=== PATIENT | male | born 1950 | race Caucasian/White ===

== ENCOUNTER 2017-07-11 14:55 | Outpatient (RCR) | payer MEDICARE ==
[~2017-07-11 14:55] MED LIST: METF-421 PO; SIMV-49 PO
[2017-07-11 14:57] VITALS: BP 136/83
--- NOTE | 2017-07-12 16:56 | ONCOLOGY FOLLOW UP NOTE ---
EVENT DATE: July 11, 2017 DIAGNOSES 1. Iron overload. 2. 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 3. Erythrocytosis. 4. History of perforated diverticulitis status post surgery. 5. Hypercholesterolemia. CHIEF COMPLAINT The patient is here today for followup of his iron overload and secondary erythrocytosis. HEMATOLOGY HISTORY The patient is a 65-year-old male with insignificant past medical history except for perforated diverticulitis twelve years ago and hypercholesterolemia. The patient has been seen by Dr. Vega and he had iron studies done recently which showed ferritin of 709. CBC showed white count of 7.6, hemoglobin 17.5, hematocrit 50.9 and platelets 193,000. Transferrin saturation was 77%. TIBC was at the lower end of normal at 249. Hemochromatosis genetic testing came back positive for heterozygous state for F65C mutation of the HFE gene. HISTORY OF PRESENT ILLNESS The patient is here today for followup of his iron overload and erythrocytosis. He is doing fine currently and denies any symptoms or complaints today. PAST MEDICAL HISTORY 1. Perforated diverticulitis 12 years ago. 2. Hypercholesterolemia. PAST SURGICAL HISTORY Appendectomy in 1989 and surgery for perforated diverticulitis in 2002. SOCIAL HISTORY Patient is . He has a son and daughter. He has also a step-daughter. 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 He has 1 drink per week. He quit smoking November 1999 after a half pack a day for 20 years. Denies any abuse of illicit drugs. FAMILY HISTORY Father had prostate cancer at the age of 65. Mother had breast cancer at the age of 75. CURRENT MEDICATIONS 1. Simvastatin. 2. Baby aspirin. ALLERGIES NARCOTICS which cause flushing. REVIEW OF SYSTEMS CONSTITUTIONAL: No appetite or weight change. No fever, chills or sweating. No recent infection. HEENT: Ears: No tinnitus or hearing problem. Nose: No nasal discharge or epistaxis. Throat: No sore throat or mouth ulcers. Eyes: No diplopia or visual changes. RESPIRATORY: No shortness of breath. He has some cough from recent cold. No expectoration or hemoptysis. CARDIOVASCULAR: No chest pain, orthopnea, or paroxysmal nocturnal dyspnea (PND) . No edema. No palpitations. GASTROINTESTINAL: No nausea or vomiting. No diarrhea or constipation. No change in bowel movements. No heartburn or swallowing difficulties. No abdominal pain. No jaundice. No hematemesis, melena or rectal bleeding. GENITOURINARY: No hematuria or dysuria. MUSCULOSKELETAL: No pain in the muscles, joints or bones. NEUROLOGICAL: No tingling or numbness in the hands or feet. No headaches or convulsions. HEMATOLOGIC/LYMPHATIC: No bleeding or easy bruising. No weakness or fatigue. No enlarged lymph nodes. SKIN: No skin rash or lumps. PSYCHIATRIC: No anxiety or depression. PHYSICAL EXAMINATION GENERAL: Looks stable. Well-developed, well-nourished, and in no acute distress. VITAL SIGNS: Blood pressure 136/83, pulse 78 per minute, respirations 16 per minute, temperature 96.6, pulse oximetry 97% on room air. HEENT: Head: Atraumatic. No sinus tenderness to palpation. Eyes: No icterus or conjunctivitis. Mouth and throat: No oral thrush or mucositis. NECK: Supple. No cervical or supraclavicular lymphadenopathy. LUNGS: Clear to auscultation and percussion bilaterally. HEART: Regular rate and rhythm. No gallops, murmurs, clicks or rubs. ABDOMEN: Soft and lax. No tenderness. No hepatosplenomegaly. No masses. EXTREMITIES: No cyanosis, clubbing or edema. LYMPHATICS: No peripheral lymphadenopathy. NEUROLOGICAL: Conscious, alert and oriented times three. No focal motor or sensory deficits. PSYCHIATRIC: Mood and affect appear normal. SKIN: No skin rash, bruise or purpuric eruption. DIAGNOSTIC DATA Chem panel totally normal except creatinine 1.31, calcium 10.4, serum iron was 127, iron saturation 42%, TIBC was 304, total bilirubin was 1.6 and direct bilirubin was 0.43, blood sugar 147. Albumin was 5.1. ASSESSMENT 1. Iron overload with heterozygous state of S65C mutation of the HFE gene of hemochromatosis. The patient received phlebotomy sessions in the past. His ferritin dropped from 698 to 210 then summer to 402, then to 492. He received phlebotomy for that. His current iron studies are within the normal range, but ferritin was not done. I am planning to see him again in six months with CBC, chem panel, iron studies with ferritin. 2. Heterozygous state for S65C mutation with HFE gene. We will do a phlebotomy whenever it is indicated. 3. Erythrocytosis. Will consider phlebotomy if the hematocrit is above 55%. 4. History of perforated diverticulitis status post surgery. 5. Hypercholesterolemia on treatment. PLAN 1. Continue followup. 2. Phlebotomize 500 mL of blood if ferritin is above the normal range. 3. The patient to return in six months with CBC, chem panel and iron studies with ferritin. 4. The patient to contact us for any new concerns or complaints. TISH
--- NOTE | 2017-07-12 17:01 | ONCOLOGY FOLLOW UP NOTE ---
EVENT DATE: July 11, 2017 DIAGNOSES 1. Iron overload. 2. 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 3. Erythrocytosis. 4. History of perforated diverticulitis status post surgery. 5. Hypercholesterolemia. CHIEF COMPLAINT The patient is here today for followup DICTATION ENDS HERE MTDD
== END 2017-08-21 13:20 | disposition home or self-care (01) ==
LOC: ONC 14:55
PROVIDERS: ATTEND Internal Medicine Hematology
DX: E83.119 Hemochromatosis, unspecified (principal); D75.1 Secondary polycythemia; E78.00 Pure hypercholesterolemia, unspecified; Z87.891 Personal history of nicotine dependence
CPT/HCPCS: 99212

== ENCOUNTER 2018-01-24 08:19 | Outpatient (RCR) | payer MEDICARE ==
[~2018-01-24 08:19] MED LIST changes: -METF-421 PO; +METF-452 PO
[2018-01-24 15:41] VITALS: BP 142/89
--- NOTE | 2018-01-24 21:02 | ONCOLOGY FOLLOW UP NOTE ---
EVENT DATE: January 24, 2018 DIAGNOSES 1. Iron overload. 2. 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 3. Erythrocytosis. 4. History of perforated diverticulitis, status post surgery. 5. Hypercholesterolemia. CHIEF COMPLAINT The patient is here today for followup of his iron overload and secondary erythrocytosis. HEMATOLOGY HISTORY The patient is a 67-year-old male with insignificant past medical history except for perforated diverticulitis 12 years ago and hypercholesterolemia. The patient has been seen by Dr. Vega, and he had iron studies done recently which showed ferritin of 709. CBC showed white count of 7.6, hemoglobin 17.5, hematocrit 50.9, and platelets 193,000. Transferrin saturation was 77%. TIBC was at the lower end of normal at 249. Hemochromatosis genetic testing came back positive for heterozygous state for F65C mutation of the HFE gene. HISTORY OF PRESENT ILLNESS The patient is here today for followup of his iron overload and erythrocytosis. He is totally asymptomatic today, and he is doing very well. PAST MEDICAL HISTORY 1. Perforated diverticulitis 12 years ago. 2. Hypercholesterolemia. PAST SURGICAL HISTORY 1. Appendectomy in 1989. 2. Surgery for perforated diverticulitis in 2002. SOCIAL HISTORY Patient is . He has a son and a daughter. He has also a stepdaughter. 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 He has one drink per week. He quit smoking November 1999 after a half pack a day for 20 years. Denies any abuse of illicit drugs. FAMILY HISTORY Father had prostate cancer at the age of 65. Mother had breast cancer at the age of 75. CURRENT MEDICATIONS 1. Simvastatin. 2. Baby aspirin. ALLERGIES NARCOTICS which cause flushing. REVIEW OF SYSTEMS CONSTITUTIONAL: No appetite or weight change. No fever, chills or sweating. No recent infection. HEENT: Ears: No tinnitus or hearing problem. Nose: No nasal discharge or epistaxis. Throat: No sore throat or mouth ulcers. Eyes: No diplopia or visual changes. RESPIRATORY: No shortness of breath. No cough, expectoration, or hemoptysis. CARDIOVASCULAR: No chest pain, orthopnea, or paroxysmal nocturnal dyspnea (PND). No edema. No palpitations. GASTROINTESTINAL: No nausea or vomiting. No diarrhea or constipation. No change in bowel movements. No heartburn or swallowing difficulties. No abdominal pain. No jaundice. No hematemesis, melena, or rectal bleeding. GENITOURINARY: No hematuria or dysuria. MUSCULOSKELETAL: No pain in the muscles, joints, or bones. NEUROLOGICAL: No tingling or numbness in the hands or feet. No headaches or convulsions. HEMATOLOGIC/LYMPHATIC: No bleeding or easy bruising. No weakness or fatigue. No enlarged lymph nodes. SKIN: No skin rash or lumps. PSYCHIATRIC: No anxiety or depression. PHYSICAL EXAMINATION GENERAL: Looks stable. Well developed, well nourished, and in no acute distress. VITAL SIGNS: Blood pressure 142/89, pulse 78 per minute, respirations 16 per minute, temperature 98.2, pulse ox 93% on room air. HEENT: Head: Atraumatic. No sinus tenderness to palpation. Eyes: No icterus or conjunctivitis. Mouth and Throat: No oral thrush or mucositis. NECK: Supple. No cervical or supraclavicular lymphadenopathy. LUNGS: Clear to auscultation and percussion bilaterally. HEART: Regular rate and rhythm. No gallops, murmurs, clicks, or rubs. ABDOMEN: Soft and lax. No tenderness. No hepatosplenomegaly. No masses. EXTREMITIES: No cyanosis, clubbing, or edema. LYMPHATICS: No peripheral lymphadenopathy. NEUROLOGICAL: Conscious, alert, and oriented times three. No focal motor or sensory deficits. PSYCHIATRIC: Mood and affect appear normal. SKIN: No skin rash, bruise, or purpuric eruption. DIAGNOSTIC DATA CBC shows white count 7.8, hemoglobin 18.3, hematocrit 53.6, platelets 239,000. ASSESSMENT 1. Iron overload with heterozygous state of S65C mutation of the HFE gene of hemochromatosis. The patient received phlebotomy sessions in the past. He did not have iron studies this time, but he had a phlebotomy based on his high hematocrit. I am planning to see him every six months with CBC and iron studies with ferritin, and I will plan for phlebotomy if ferritin above 100 and/or iron saturation above 60%. 2. Heterozygous state for S65C mutation of the HFE gene. Patient will receive phlebotomy based on the iron studies. 3. Erythrocytosis. Will consider phlebotomy if the hematocrit above 55%. His current hematocrit is 53.6%. Patient received already phlebotomy. 4. History of perforated diverticulitis, status post surgery. 5. Hypercholesterolemia, on treatment. PLAN 1. Continue followup. 2. Phlebotomize 500 mL of blood if ferritin is above 100 and/or iron saturation above 60% or hematocrit above 55% 3. The patient to return in six months with CBC and iron studies with ferritin. 4. The patient to contact us for any new concerns or complaints. MALUD
== END 2018-02-19 13:23 | disposition home or self-care (01) ==
LOC: ONC 08:19
PROVIDERS: ATTEND Internal Medicine Hematology
DX: E83.119 Hemochromatosis, unspecified (principal); D75.1 Secondary polycythemia; E78.00 Pure hypercholesterolemia, unspecified; Z87.891 Personal history of nicotine dependence
CPT/HCPCS: 99212

== ENCOUNTER 2018-07-04 15:48 | Outpatient (RCR) | payer MEDICARE ==
[2018-07-04 15:49] VITALS: BP 135/85
--- NOTE | 2018-07-05 18:53 | [facility] ONCOLOGY NOTE ---
EVENT DATE: July 04, 2018 DIAGNOSES 1. Iron overload. 2. 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 3. Erythrocytosis. 4. History of perforated diverticulitis, status post surgery. 5. Hypercholesterolemia. CHIEF COMPLAINT The patient is here today for followup of his iron overload and secondary erythrocytosis. HEMATOLOGY HISTORY The patient is a 67-year-old male with insignificant past medical history except for perforated diverticulitis 12 years ago and hypercholesterolemia. The patient has been seen by Dr. Vega, and he had iron studies done recently which showed ferritin of 709. CBC showed white count of 7.6, hemoglobin 17.5, hematocrit 50.9, and platelets 193,000. Transferrin saturation was 77%. TIBC was at the lower end of normal at 249. Hemochromatosis genetic testing came back positive for heterozygous state for F65C mutation of the HFE gene. HISTORY OF PRESENT ILLNESS The patient is here today for followup of his iron overload and erythrocytosis. He is doing fine currently, and he is totally asymptomatic. PAST MEDICAL HISTORY 1. Perforated diverticulitis 12 years ago. 2. Hypercholesterolemia. PAST SURGICAL HISTORY 1. Appendectomy in 1989. 2. Surgery for perforated diverticulitis in 2002. SOCIAL HISTORY Patient is . He has a son and a daughter. He has also a stepdaughter. 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 He has one drink per week. He quit smoking November 1999 after a half pack a day for 20 years. Denies any abuse of illicit drugs. FAMILY HISTORY Father had prostate cancer at the age of 65. Mother had breast cancer at the age of 75. CURRENT MEDICATIONS 1. Simvastatin. 2. Baby aspirin. ALLERGIES NARCOTICS which cause flushing. REVIEW OF SYSTEMS CONSTITUTIONAL: No appetite or weight change. No fever, chills, or sweating. No recent infection. HEENT: Ears: No tinnitus or hearing problem. Nose: No nasal discharge or epistaxis. Throat: No sore throat or mouth ulcers. Eyes: No diplopia or visual changes. RESPIRATORY: No shortness of breath. No cough, expectoration, or hemoptysis. CARDIOVASCULAR: No chest pain, orthopnea, or paroxysmal nocturnal dyspnea (PND). No edema. No palpitations. GASTROINTESTINAL: No nausea or vomiting. No diarrhea or constipation. No change in bowel movements. No heartburn or swallowing difficulties. No abdominal pain. No jaundice. No hematemesis, melena, or rectal bleeding. GENITOURINARY: No hematuria or dysuria. MUSCULOSKELETAL: No pain in the muscles, joints, or bones. NEUROLOGIC: No tingling or numbness in the hands or feet. No headaches or convulsions. HEMATOLOGIC/LYMPHATIC: No bleeding or easy bruising. No weakness or fatigue. No enlarged lymph nodes. SKIN: No skin rash or lumps. PSYCHIATRIC: No anxiety or depression. PHYSICAL EXAMINATION GENERAL: Looks stable. Well developed, well nourished, and in no acute distress. VITAL SIGNS: Blood pressure 135/85, pulse 84 per minute, respirations 16 per minute, temperature 97.3, pulse ox 93% on room air. HEENT: Head: Atraumatic. No sinus tenderness to palpation. Eyes: No icterus or conjunctivitis. Mouth and Throat: No oral thrush or mucositis. NECK: Supple. No cervical or supraclavicular lymphadenopathy. LUNGS: Clear to auscultation and percussion bilaterally. HEART: Regular rate and rhythm. No gallops, murmurs, clicks, or rubs. ABDOMEN: Soft and lax. No tenderness. No hepatosplenomegaly. No masses. EXTREMITIES: No cyanosis, clubbing, or edema. LYMPHATICS: No peripheral lymphadenopathy. NEUROLOGIC: Conscious, alert, and oriented times three. No focal motor or sensory deficits. PSYCHIATRIC: Mood and affect appear normal. SKIN: No skin rash, bruise, or purpuric eruption. DIAGNOSTIC DATA CBC showed white count 12.3, hemoglobin 18.5, hematocrit 52.4, platelets 270,000. Serum iron is 112, iron saturation 38%, serum ferritin 304. ASSESSMENT 1. Iron overload with heterozygous state of S65C mutation of the HFE gene of hemochromatosis. Patient received phlebotomy sessions in the past, but his iron studies this time are reasonable. He does not need any phlebotomy. His serum ferritin is 304, which was at the normal range, iron saturation 38%. I will consider phlebotomy if the ferritin is above the normal range and iron saturation above 60%. 2. Heterozygous state for S65C mutation of the HFE gene. Patient will receive phlebotomy based on the iron results. 3. Erythrocytosis. His current hematocrit is 52.4% and no indication for phlebotomy at this time. 4. History of perforated diverticulitis, status post surgical resection. 5. Hypercholesterolemia, on treatment. PLAN 1. Continue followup. 2. Patient to return in six months with CBC and iron studies with ferritin. 3. Phlebotomize 500 mL of blood if ferritin above the normal range and iron saturation above 60% or hematocrit above 55%. 4. Patient to contact us for any new concerns or complaints. MTDD
== END 2018-07-16 09:29 | disposition home or self-care (01) ==
LOC: ONC 15:48
PROVIDERS: ATTEND Internal Medicine Hematology
DX: E83.19 Other disorders of iron metabolism (principal); D75.1 Secondary polycythemia; E78.00 Pure hypercholesterolemia, unspecified; Z87.891 Personal history of nicotine dependence
CPT/HCPCS: 99212